=== PATIENT | female | born 1970 ===

== ENCOUNTER 2016-05-29 16:34 | Observation (INO) | payer MEDICAID ==
[2016-05-29 16:34] VITALS: BMI 29.7
[2016-05-29 17:32] VITALS: RESP 18; O2SAT 99
[2016-05-29] MEDS ORDERED: Sodium Chloride 0.9% 1,000 ML IV STA (18:53)
[2016-05-29] MEDS ORDERED: Iohexol 240 (50 ml) PO ONE (18:55)
[2016-05-29 19:11] LABS: BASO % 0.4 % (0.0-2.0); EOS # 0.3 K/uL (0.0-0.7); EOS % 2.9 % (0.0-4.0); HEMATOCRIT 39.7 % (34.0-47.0); LYMPH # 3.1 K/uL (1.0-4.3); MEAN CELL VOLUME 89.4 fl (81.0-99.0); MEAN CORPUSCULAR HEMOGLOBIN 30.3 pg (27.0-31.0); MEAN CORPUSCULAR HGB CONC 33.9 g/dL (33.0-37.0); MEAN PLATELET VOLUME 11.4 fl (7.2-11.7); MONO # 0.6 K/uL (0.0-0.8); MONO % 6.1 % (0.0-10.0); NEUT # 5.8 K/uL (1.8-7.0); NEUT % 58.6 % (50.0-75.0); RED CELL DISTRIBUTION WIDTH 12.5 % (11.5-14.5); WHITE BLOOD COUNT 9.8 K/uL (4.8-10.8)
[2016-05-29 19:20] LABS: ALB/GLOB RATIO 1.1 (1.0-2.1); ALKALINE PHOSPHATASE 114 U/L (38-126); ALT/SGPT 43 U/L (9-52); AST/SGOT 32 U/L (14-36); BILIRUBIN,TOTAL 0.7 mg/dl (0.2-1.3); BLOOD UREA NITROGEN 11 mg/dl (7-17); CALCIUM 9.6 mg/dL (8.4-10.2); CARBON DIOXIDE 26 mmol/L (22-30); CHLORIDE 103 mmol/L (98-107); GFR AFRICAN-AMERICAN > 60; GLUCOSE,RANDOM 103 mg/dL (65-105); POTASSIUM 3.7 MMOL/L (3.6-5.0); SODIUM 144 mmol/l (132-148)
[2016-05-29] MEDS ORDERED: Iohexol 240 (50 ml) ONE (19:22)
--- NOTE | 2016-05-29 19:31 | ED PDOC ---
HPI: General Adult Time Seen by Provider: 05/29/16 18:12 Chief Complaint (Nursing): Abdominal Pain Chief Complaint (Provider): Abdominal pain History Per: Patient Additional Complaint(s): Pt. states for the past 2 days she's had LLQ abdominal pain associated with nausea but no vomiting. Reports a hx of diverticulitis but no colectomy. States that pain became worse today. Also states that she noticed lump on the L side of her vagina which she no longer feels. Denies dysuria, hematuria, diarrhea, fever. Past Medical History Reviewed: Historical Data, Nursing Documentation, Vital Signs Vital Signs: Last Vital Signs Temp 98.3 F 05/29/16 22:55 Pulse 86 05/29/16 22:55 Resp 18 05/29/16 22:55 BP 138/76 05/29/16 22:55 Pulse Ox 99 05/29/16 22:55 - Medical History PMH: Anxiety, Asthma, Depression, Diverticulitis, Hiatal Hernia, HTN Denies: Chronic Kidney Disease - Surgical History Surgical History: Cholecystectomy - Family History Family History: States: No Known Family Hx - Immunization History Hx Tetanus Toxoid Vaccination: No Hx Influenza Vaccination: Yes Hx Pneumococcal Vaccination: No - Home Medications Home Medications: Ambulatory Orders Medication Instructions Recorded Pantoprazole Sodium [Protonix] 40 mg PO DAILY #20 ect 12/05/12 Albuterol Sulfate [Albuterol 1 vial IH TID PRN 12/04/13 Sulfate 2.5mg/3 ml 0.083%] DULoxetine [Cymbalta] 20 mg PO DAILY 12/04/13 Fluticasone Nasal [Flonase] 1 spray MYRTLE BID PRN 12/04/13 Hyoscyamine Sulfate [Hyoscyamine 1 tab SL AC 12/04/13 Sulfate] Loratadine [Claritin] 10 mg PO DAILY PRN 12/04/13 Nabumetone [Nabumetone] 500 mg PO BID PRN 12/04/13 Tizanidine HCl [Tizanidine] 4 mg PO Q8H PRN 12/04/13 Vitamin B Complex & Vitamin C 1 tab PO DAILY 12/04/13 [Strovite] Ranitidine HCl [Zantac 150] 150 mg PO DAILY #15 tab 07/04/14 Sucralfate [Carafate] 10 ml PO QID #400 ml 07/04/14 Inulin [Metamucil Clear and 1 pow PO DAILY #30 unit 10/28/14 Natural] Phosphate Enema [Fleet Enema 135 135 ml RC QOTHERDAY #3 nma 10/28/14 Ml] Esomeprazole Magnesium [Nexium] 20 mg PO DAILY #20 ecc 05/07/15 Fluticasone Propionate [Flonase] 1 spr NS BID #1 spr 05/07/15 Metoclopramide [Reglan] 10 mg PO TID #30 tab 05/14/15 Sucralfate [Carafate] 1 gm PO QID #60 dose 05/14/15 - Allergies Allergies/Adverse Reactions: Allergies Allergy/AdvReac Type Severity Reaction Status Date / Time levofloxacin [From Levaquin] Allergy URTICARIA Verified 05/07/15 16:50 lidocaine Allergy URTICARIA Verified 05/07/15 17:06 ALMOND Allergy ITCHING Uncoded 05/07/15 16:25 Review of Systems ROS Statement: Except As Marked, All Systems Reviewed And Found Negative Gastrointestinal: Positive for: Nausea, Abdominal Pain Physical Exam - Reviewed Nursing Documentation Reviewed: Yes Vital Signs Reviewed: Yes - Physical Exam Appears: Positive for: Well, Non-toxic, No Acute Distress Head Exam: Positive for: ATRAUMATIC, NORMAL INSPECTION, NORMOCEPHALIC Skin: Positive for: Normal Color, Warm. Negative for: Rash Eye Exam: Positive for: EOMI, Normal appearance, PERRL ENT: Positive for: Normal ENT Inspection Neck: Positive for: Normal, Painless ROM Cardiovascular/Chest: Positive for: Regular Rate, Rhythm Respiratory: Positive for: CNT, Normal Breath Sounds Gastrointestinal/Abdominal: Positive for: Normal Exam, Bowel Sounds, Soft, Tenderness (moderate LLQ abdominal tenderness) Pelvic Exam: Positive for: External Exam Normal, Speculum Exam Normal, Bimanual Exam Normal, No Cerv. 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 ). Negative for: Blood, Cervicitis, Discharge, Lesions, Mass Back: Positive for: Normal Inspection. Negative for: L CVA Tenderness, R CVA Tenderness Extremity: Positive for: Normal ROM Neurologic/Psych: Positive for: Alert, Oriented - Laboratory Results Result Diagrams: 05/29/16 19:00 05/29/16 19:00 - ECG O2 Sat by Pulse Oximetry: 99 - Progress ED Course And Treament: Labs ordered. CT abd/pelvis ordered. Morphine 4mg IV, zofran 4mg IV given. Disposition - Clinical Impression Clinical Impression: Fatty liver - Patient ED Disposition Is Patient to be Admitted: Transfer of Care (Signed out to Peg COPE pending CT results.) - Disposition Disposition Time: 20:00 Condition: GOOD
[2016-05-29 19:39] LABS: URINE BILIRUBIN NEGATIVE (NEGATIVE); URINE BLOOD NEGATIVE (NEGATIVE); URINE COLOR YELLOW (YELLOW); URINE GLUCOSE (UA) NEG (Normal); URINE KETONE NEGATIVE (NEGATIVE); URINE LEUKOCYTE ESTERASE NEG Leu/uL (Negative); URINE PROTEIN NEGATIVE (NEGATIVE); URINE UROBILINOGEN 0.2-1.0 mg/dL (0.2-1.0); WBC URINE 1 /hpf (0-5)
--- NOTE | 2016-05-29 20:44 | CT ---
EXAM: CT Abdomen and Pelvis Without Intravenous Contrast CLINICAL HISTORY: 46 years old, female; Pain; Abdominal pain; Localized; Left lower quadrant (llq); Prior surgery; Surgery date: 6+ months; Surgery type: Gb removed, tubal ligation; Additional info: Llq abdominal pain TECHNIQUE: Axial computed tomography images of the abdomen and pelvis without intravenous contrast. This CT exam was performed using one or more of the following dose reduction techniques: automated exposure control, adjustment of the mA and/or kV according to patient size, and/or use of iterative reconstruction technique. Coronal and sagittal reformatted images were created and reviewed. EXAM DATE/TIME: 05/29/2016 7:40 PM COMPARISON: CT - ABD PELVIS PO CONTRAST ONLY 10/28/2014 10:02:00 PM FINDINGS: Lower thorax: Heart size is normal. There is a hiatal hernia. Lung bases are clear ABDOMEN: Liver: There is fatty infiltration of the liver. Liver size is at the upper limits of normal. Gallbladder and bile ducts: Gallbladder is surgically absent. Common bile duct is mildly prominent. Pancreas: unremarkable Spleen: unremarkable Adrenals: unremarkable Kidneys and ureters: Right kidney is unremarkable. 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 There are no renal or ureteral stones. Stomach and bowel: Stomach is partially distended. Rotation is normal. There is no obstruction. Appendix and terminal ileum are unremarkable. Colon is incompletely distended which limits evaluation. There is minimal diverticulosis Appendix: See stomach and bowel PELVIS: Bladder: Bladder is almost completely empty. Reproductive: Uterus and adnexal structures are unremarkable. ABDOMEN and PELVIS: Intraperitoneal space: There is trace free fluid. There are is no free air. Bones/joints: There are no acute osseous abnormalities there is minimal degenerative change. Soft tissues: There is a small fat containing umbilical hernia. Vasculature: Vascular structures are unremarkable. Lymph nodes: There is shotty para-aortic adenopathy. IMPRESSION: Fatty liver, no acute solid visceral abnormality; prior cholecystectomy, no ductal dilatation; no CT findings of appendicitis or diverticulitis Additional findings as described above.
--- NOTE | 2016-05-29 22:10 | ED PDOC ---
- Laboratory Results Result Diagrams: 05/29/16 19:00 05/29/16 19:00 - ECG O2 Sat by Pulse Oximetry: 99 Medical Decision Making Medical Decision Making: Endorsed pending CT. (+) fatty liver. Discussed f.u with GI. Disposition - Clinical Impression Clinical Impression: Steatosis of liver - POA Present On Arrival: None - Disposition Disposition: Routine/Home Disposition Time: 22:09 Condition: GOOD
[2016-05-29 22:56] VITALS: BP 138/76; PULSE 86; TEMP 98.3
== END 2016-05-29 22:56 | disposition home or self-care (01) ==
LOC: H.ER 16:34 → H.EROBSV 18:52
PROVIDERS: ADMIT Emergency Medicine; ATTEND Emergency Medicine
DX: K76.0 Fatty (change of) liver, not elsewhere classified (principal); I10 Essential (primary) hypertension; J45.909 Unspecified asthma, uncomplicated

== ENCOUNTER 2016-12-04 18:31 | Emergency (ER) | payer MEDICAID ==
[2016-12-04 18:31] VITALS: BMI 29.7
[2016-12-04 19:06] VITALS: O2SAT 97
--- NOTE | 2016-12-04 19:20 | ED PDOC ---
HPI: General Adult Time Seen by Provider: 12/04/16 19:19 Chief Complaint (Nursing): Flu-like Symptoms Chief Complaint (Provider): abd pain, body aches History Per: Patient Additional Complaint(s): 46-year-old female with history of diverticulitis presents to emergency department complaining of left lower quadrant abdominal pain, nausea and body aches 1 week. Patient states pain progressed today prompting ED visit. Patient has decreased appetite and diarrhea but denies any vomiting. She denies any dysuria or history of kidney stones. She relates abdominal pain as a 9 out of 10. Past Medical History Reviewed: Historical Data, Nursing Documentation, Vital Signs Vital Signs: Last Vital Signs Temp 102.0 F H 12/04/16 19:05 Pulse 121 H 12/04/16 19:05 Resp 16 12/04/16 19:05 BP 161/95 H 12/04/16 19:05 Pulse Ox 97 12/04/16 19:20 - Medical History PMH: Anxiety, Asthma, Depression, Diverticulitis, Hiatal Hernia, HTN - Surgical History Surgical History: Cholecystectomy - Family History Family History: States: No Known Family Hx - Living Arrangements Living Arrangements: With Family - Social History Current smoker - smoking cessation education provided: No Alcohol: None Drugs: Denies - Home Medications Home Medications: Ambulatory Orders Medication Instructions Recorded Cholecalciferol [Vitamin D 1000 IU] 1,000 unit PO DAILY 06/02/16 Cyclobenzaprine [Flexeril] 10 mg PO BID PRN 06/02/16 Famotidine [Pepcid] 20 mg PO BID PRN 06/02/16 Metoclopramide [Reglan] 10 mg PO TID PRN 06/02/16 Multivitamin [Multi-Vitamin Daily] 1 tab PO DAILY 06/02/16 Naproxen [Naprosyn] 500 mg PO BID PRN 06/02/16 Omeprazole [Omeprazole] 40 mg PO DAILY 06/02/16 Thiamine [Vitamin B1 Tab] 100 mg PO DAILY 06/02/16 - Allergies Allergies/Adverse Reactions: Allergies Allergy/AdvReac Type Severity Reaction Status Date / Time Iodinated Contrast- Oral and Allergy RASH Verified 06/02/16 13:30 IV Dye [Iodinated Contrast Media - Oral and] levofloxacin [From Levaquin] Allergy URTICARIA Verified 06/02/16 13:30 lidocaine Allergy URTICARIA Verified 06/02/16 13:30 ALMOND Allergy ITCHING Uncoded 05/07/15 16:25 Review of Systems ROS Statement: Except As Marked, All Systems Reviewed And Found Negative Constitutional: Positive for: Fever, Chills, Weakness Cardiovascular: Negative for: Chest Pain Respiratory: Negative for: Cough Gastrointestinal: Positive for: Nausea, Abdominal Pain, Diarrhea. Negative for : Vomiting, Constipation, Melena, Hematochezia, Hematemesis, Rectal Pain Genitourinary Female: Negative for: Dysuria, Frequency, Hematuria, Vaginal Discharge, Vaginal Bleeding Neurological: Negative for: Headache, Dizziness Physical Exam - Reviewed Nursing Documentation Reviewed: Yes Vital Signs Reviewed: Yes - Physical Exam Appears: Positive for: Well, Non-toxic, No Acute Distress Skin: Negative for: Rash Eye Exam: Positive for: Normal appearance Cardiovascular/Chest: Positive for: Regular Rate, Rhythm Respiratory: Positive for: Normal Breath Sounds Gastrointestinal/Abdominal: Positive for: Tenderness (llq). Negative for: Distended, Guarding, Rebound Back: Positive for: L CVA Tenderness. Negative for: R CVA Tenderness, Vertebral Tenderness Extremity: Positive for: Normal ROM. Negative for: Pedal Edema Neurologic/Psych: Positive for: Alert, Oriented - ECG O2 Sat by Pulse Oximetry: 97 Pulse Ox Interpretation: Normal Medical Decision Making Medical Decision Makin46 year old with fever, body aches and abd pain Plan: CBC CMP Lipase Lactate Flu swab Blood cultures UA Urine culture IVF PO tylenol and motrin CT abd and pelvis with barium (patient has allergy to IV and oral contrast) IV zofran CXR Disposition - Clinical Impression Clinical Impression: Abdominal pain - Patient ED Disposition Is Patient to be Admitted: Transfer of Care - Disposition Disposition: Transfer of Care Disposition Time: 20:07 Condition: FAIR Forms: [employer] (Afghan) Patient Signed Over To: Coni Bellamy Handoff Comments: Case was transferred to NANDA Bellamy pending diagnostic test results and final disposition
[2016-12-04] MEDS ORDERED: Barium Sulfate Susp 2.1% w/v, 2.0% w/w 450 mL Bottle PO ONE ×3 (19:35→20:38)
[2016-12-04] MEDS ORDERED: Sodium Chloride 0.9% 1,000 ML IV STA (19:35)
[2016-12-04 20:31] LABS: BASO % 0.1 % (0.0-2.0); EOS % 0.1 % (0.0-4.0); HEMATOCRIT 38.5 % (34.0-47.0); LYMPH # 0.5 K/uL (1.0-4.3); MEAN CELL VOLUME 88.4 fl (81.0-99.0); MEAN CORPUSCULAR HEMOGLOBIN 29.6 pg (27.0-31.0); MEAN CORPUSCULAR HGB CONC 33.5 g/dL (33.0-37.0); MEAN PLATELET VOLUME 10.6 fl (7.2-11.7); MONO # 0.1 K/uL (0.0-0.8); MONO % 1.8 % (0.0-10.0); NEUT # 6.1 K/uL (1.8-7.0); PLATELET COUNT 144 K/uL (130-400); RED CELL DISTRIBUTION WIDTH 12.8 % (11.5-14.5); WHITE BLOOD COUNT 6.7 K/uL (4.8-10.8)
[2016-12-04 20:43] LABS: RBC URINE 1 /hpf (0-3); URINE BILIRUBIN NEGATIVE (NEGATIVE); URINE BLOOD NEGATIVE (NEGATIVE); URINE COLOR YELLOW (YELLOW); URINE GLUCOSE (UA) NEG (Normal); URINE KETONE NEGATIVE (NEGATIVE); URINE LEUKOCYTE ESTERASE NEG Leu/uL (Negative); URINE PROTEIN NEGATIVE (NEGATIVE); URINE UROBILINOGEN 0.2-1.0 mg/dL (0.2-1.0); WBC URINE 1 /hpf (0-5)
[2016-12-04 21:02] LABS: ALB/GLOB RATIO 1.2 (1.0-2.1); ALKALINE PHOSPHATASE 115 U/L (38-126); ALT/SGPT 43 U/L (9-52); AST/SGOT 31 U/L (14-36); BILIRUBIN,TOTAL 0.7 mg/dl (0.2-1.3); BLOOD UREA NITROGEN 9 mg/dl (7-17); CALCIUM 9.1 mg/dL (8.4-10.2); CARBON DIOXIDE 21 mmol/L (22-30); CHLORIDE 105 mmol/L (98-107); GFR AFRICAN-AMERICAN > 60; GLUCOSE,RANDOM 105 mg/dL (65-105); LIPASE 67 U/L (23-300); POTASSIUM 3.7 MMOL/L (3.6-5.0); SODIUM 137 mmol/l (132-148); TOTAL PROTEIN 7.6 G/DL (6.3-8.2)
[2016-12-04 21:16] LABS: METAMYELOCYTE 1 % (0-0); NEUTROPHIL 92 % (42-75); TOTAL CELLS COUNTED 100
--- NOTE | 2016-12-04 23:15 | CT ---
EXAM: CT Abdomen and Pelvis With Intravenous Contrast CLINICAL HISTORY: 46 years old, female; Pain; Abdominal pain; Localized; Left; Prior surgery; Surgery date: 1-6 months; Surgery type: Rt ovary removed within 6 months. Tubal ligation. Gb removed; Patient HX: HX: Of diverticulitis; Additional info: Fever, left side abd pain TECHNIQUE: Axial computed tomography images of the abdomen and pelvis with intravenous contrast. All CT scans at this facility use one or more dose reduction techniques, viz.: automated exposure control; ma/kV adjustment per patient size (including targeted exams where dose is matched to indication; i.e. head); or iterative reconstruction technique. Coronal and sagittal reformatted images were created and reviewed. COMPARISON: CT - ABD PELVIS PO CONTRAST ONLY 2016-06-02 17:46 FINDINGS: Lower thorax: The visualized portions of the lung bases are normal. ABDOMEN: Liver: There is a diffuse decrease in hepatic parenchymal density, consistent with fatty infiltration. There are no focal liver lesions present. Gallbladder and bile ducts: There has been a cholecystectomy. No ductal dilation. Pancreas: The pancreas is normal. No ductal dilation. Spleen: The spleen is normal. Adrenals: The adrenal glands are normal. Kidneys and ureters: The kidneys are normal. No hydronephrosis. Stomach and bowel: The stomach is normal. Colonic constipation is present. There is no evidence of intestinal obstruction. No mucosal thickening. Appendix: A normal appendix is identified. PELVIS: Bladder: The bladder is normal. Reproductive: The uterus is normal. ABDOMEN and PELVIS: Intraperitoneal space: There is no evidence of free intraperitoneal fluid. There is no free intraperitoneal air. Bones/joints: There are mild degenerative changes present. No acute fracture. No dislocation. Soft tissues: Unremarkable. Vasculature: The aorta is normal. No abdominal aortic aneurysm. Lymph nodes: There is no evidence of lymphadenopathy. IMPRESSION: No acute findings.
--- NOTE | 2016-12-04 23:28 | ED PDOC ---
- Laboratory Results Result Diagrams: 12/04/16 20:19 12/04/16 20:47 - ECG O2 Sat by Pulse Oximetry: 97 Pulse Ox Interpretation: Normal - Radiology X-Ray: Viewed By Me X-Ray Interpretation: No Acute Disease - Progress ED Course And Treament: Case endorsed to card writer hand from Michelle COPE pending labs, CT EXAM: CT Abdomen and Pelvis With Intravenous Contrast CLINICAL HISTORY: 46 years old, female; Pain; Abdominal pain; Localized; Left; Prior surgery; Surgery date: 1-6 months; Surgery type: Rt ovary removed within 6 months. Tubal ligation. Gb removed; Patient HX: HX: Of diverticulitis; Additional info: Fever, left side abd pain TECHNIQUE: Axial computed tomography images of the abdomen and pelvis with intravenous contrast. All CT scans at this facility use one or more dose reduction techniques, viz.: automated exposure control; ma/kV adjustment per patient size (including targeted exams where dose is matched to indication; i.e. head); or iterative reconstruction technique. Coronal and sagittal reformatted images were created and reviewed. COMPARISON: CT - ABD PELVIS PO CONTRAST ONLY 2016-06-02 17:46 FINDINGS: Lower thorax: The visualized portions of the lung bases are normal. ABDOMEN: Liver: There is a diffuse decrease in hepatic parenchymal density, consistent with fatty infiltration. There are no focal liver lesions present. Gallbladder and bile ducts: There has been a cholecystectomy. No ductal dilation. Pancreas: The pancreas is normal. No ductal dilation. Spleen: The spleen is normal. Adrenals: The adrenal glands are normal. Kidneys and ureters: The kidneys are normal. No hydronephrosis. Stomach and bowel: The stomach is normal. Colonic constipation is present. There is no evidence of intestinal obstruction. No mucosal thickening. Appendix: A normal appendix is identified. PELVIS: Bladder: The bladder is normal. Reproductive: The uterus is normal. ABDOMEN and PELVIS: Intraperitoneal space: There is no evidence of free intraperitoneal fluid. There is no free intraperitoneal air. Bones/joints: There are mild degenerative changes present. No acute fracture. No dislocation. Soft tissues: Unremarkable. Vasculature: The aorta is normal. No abdominal aortic aneurysm. Lymph nodes: There is no evidence of lymphadenopathy. IMPRESSION: No acute findings. On re-eval, patient resting comfortably; vitals improved. Patient educated on findings, discharged with rx miralax. Advised rest, fluids, Tylenol/Ibuprofen PRN fever. Follow up PMD 2-3 days. Return to ED for worsening/concerning symptoms. Disposition - Clinical Impression Clinical Impression: Abdominal pain, Viral syndrome, Constipation - POA Present On Arrival: None - Disposition Disposition: Routine/Home Disposition Time: 23:57 Condition: IMPROVED Prescriptions: Polyethylene Glycol 3350 [Miralax] 17 gm PO DAILY PRN #5 powd.pack PRN Reason: Constipation Instructions: Viral Syndrome (ED), Constipation (ED) Forms: [employer] (Surinamese)
[2016-12-04 23:35] VITALS: BP 116/66; PULSE 93; RESP 15; TEMP 98.4
--- NOTE | 2016-12-05 09:56 | RAD ---
HISTORY: Fever COMPARISON: 09/15/2013. FINDINGS: LUNGS: The lungs are well inflated and clear. PLEURA: No significant pleural effusion identified, no pneumothorax apparent. CARDIOVASCULAR: Normal. OSSEOUS STRUCTURES: No significant abnormalities. VISUALIZED UPPER ABDOMEN: Normal. OTHER FINDINGS: None. IMPRESSION: No active pulmonary disease.
== END 2016-12-05 00:12 | disposition home or self-care (01) ==
LOC: H.ER 18:31
DX: R10.32 Left lower quadrant pain (principal); B34.9 Viral infection, unspecified; K59.00 Constipation, unspecified; K57.90 Diverticulosis of intestine, part unspecified, without perforation or abscess without bleeding
CPT/HCPCS: 71010; 74176; 80053; 81003; 81025; 83605; 83690; 85025; 87040; 87086; 87804; 99283; J7040

== ENCOUNTER 2017-05-21 16:13 | Emergency (ER) | payer MEDICAID ==
[2017-05-21 16:13] VITALS: BMI 29.7
[2017-05-21 17:47] VITALS: RESP 18
[2017-05-21] MEDS ORDERED: Barium Sulfate Susp 2.1% w/v, 2.0% w/w 450 mL Bottle PO ONE ×3 (20:05→21:07)
[2017-05-21] MEDS ORDERED: Sodium Chloride 0.9% 1,000 ML IV SCH (20:15)
--- NOTE | 2017-05-21 20:19 | ED PDOC ---
HPI: Abdomen <Yariel Dotson - Last Filed: 05/22/17 02:24> Chief Complaint (Provider): Abdominal Pain History Per: Patient History/Exam Limitations: no limitations Current Symptoms Are (Timing): Still Present <Beni Jerez - Last Filed: 05/22/17 11:55> Time Seen by Provider: 05/21/17 20:00 Chief Complaint (Nursing): Abdominal Pain Additional Complaint(s): 47 y/o female with a pmhx of diverticulosis and cholecystectomy, who presents to the ED complaining of abdominal pain and back pain. Patient states her abdominal pain is epigastric and radiates to her back. Also states she has had frequent acid reflux which has been unimproved by Pepcid, Zantac, and Omeprazole. Reports seeing her GI, Dr. Kg Cintron, who prescribed her Protonix for her pain, but states her prescription is not yet ready. Also complaining of constipation, spitting up mucus, and mucus in her BMs. PMD: Lester Santoyo (Beni Jerez) Past Medical History <Yariel Dotson - Last Filed: 05/22/17 02:24> Reviewed: Historical Data, Nursing Documentation, Vital Signs - Medical History PMH: Anxiety, Asthma, Depression, Diverticulitis, Hiatal Hernia, HTN Denies: Chronic Kidney Disease - Surgical History Surgical History: Cholecystectomy - Family History Family History: States: Unknown Family Hx - Immunization History Hx Tetanus Toxoid Vaccination: No Hx Influenza Vaccination: Yes Hx Pneumococcal Vaccination: No <Beni Jerez - Last Filed: 05/22/17 11:55> Vital Signs: Last Vital Signs Temp 97.3 F L 05/22/17 02:10 Pulse 71 05/22/17 02:10 Resp 18 05/22/17 02:10 BP 120/82 05/22/17 02:10 Pulse Ox 97 05/22/17 02:10 - Home Medications Home Medications: Ambulatory Orders Medication Instructions Recorded Cholecalciferol [Vitamin D 1000 IU] 1,000 unit PO DAILY 06/02/16 Cyclobenzaprine [Flexeril] 10 mg PO BID PRN 06/02/16 Famotidine [Pepcid] 20 mg PO BID PRN 06/02/16 Metoclopramide [Reglan] 10 mg PO TID PRN 06/02/16 Multivitamin [Multi-Vitamin Daily] 1 tab PO DAILY 06/02/16 Naproxen [Naprosyn] 500 mg PO BID PRN 06/02/16 Omeprazole [Omeprazole] 40 mg PO DAILY 06/02/16 Thiamine [Vitamin B1 Tab] 100 mg PO DAILY 06/02/16 Polyethylene Glycol 3350 [Miralax] 17 gm PO DAILY PRN #5 powd.pack 12/04/16 - Allergies Allergies/Adverse Reactions: Allergies Allergy/AdvReac Type Severity Reaction Status Date / Time Iodinated Contrast- Oral and Allergy RASH Verified 06/02/16 13:30 IV Dye [Iodinated Contrast Media - Oral and] levofloxacin [From Levaquin] Allergy URTICARIA Verified 06/02/16 13:30 lidocaine Allergy URTICARIA Verified 06/02/16 13:30 ALMOND Allergy ITCHING Uncoded 05/07/15 16:25 Review of Systems ROS Statement: Except As Marked, All Systems Reviewed And Found Negative Gastrointestinal: Positive for: Abdominal Pain, Constipation Musculoskeletal: Positive for: Back Pain <Beni Jerez - Last Filed: 05/22/17 11:55> Physical Exam - Reviewed Nursing Documentation Reviewed: Yes Vital Signs Reviewed: Yes - Physical Exam Appears: Positive for: Non-toxic, No Acute Distress Head Exam: Positive for: ATRAUMATIC Skin: Positive for: Normal Color, Warm Eye Exam: Positive for: Normal appearance Cardiovascular/Chest: Positive for: Regular Rate, Rhythm, Chest Non Tender. Negative for: Murmur Respiratory: Positive for: Normal Breath Sounds. Negative for: Rales, Wheezing , Respiratory Distress, Plerual Rub Gastrointestinal/Abdominal: Positive for: Tenderness (epigastric tenderness into lower sternum), Other (Garcia's sign negative, McBurney's sign negative, Rosving's sign negative). Negative for: Guarding, Rebound <Beni Jerez - Last Filed: 05/22/17 11:55> - Laboratory Results Result Diagrams: 05/21/17 20:37 05/21/17 20:37 <Yariel Dotson - Last Filed: 05/22/17 02:24> - Laboratory Results Result Diagrams: 05/21/17 20:37 05/21/17 20:37 - ECG O2 Sat by Pulse Oximetry: 98 (RA) Pulse Ox Interpretation: Normal <Beni Jerez - Last Filed: 05/22/17 11:55> Medical Decision Making <MauriYariel Krzysztof - Last Filed: 05/22/17 02:24> <Beni Jerez - Last Filed: 05/22/17 11:55> Medical Decision Makin:05 Initial Impression: Gastric ulcer Plan: -CT Abdomen and Pelvis -Alcohol serum -CMP -Lipase -Troponin I -CBC -Fluid bolus -Barium Sulfate 300ml PO -Urinalysis -Reevaluation Scribe Attestation: Documented by John Alegria, acting as a scribe for Beni Jerez PA-C. Provider Scribe Attestation: All medical record entries made by the Scribe were at my direction and personally dictated by me. I have reviewed the chart and agree that the record accurately reflects my personal performance of the history, physical exam, medical decision making, and the department course for this patient. I have also personally directed, reviewed, and agree with the discharge instructions and disposition. (Beni Jerez) Disposition <Yariel Dotson - Last Filed: 05/22/17 02:24> <Beni Jerez - Last Filed: 05/22/17 11:55> - Clinical Impression Clinical Impression: Gastritis - Disposition Condition: STABLE Instructions: Gastritis Forms: [employer] (Korean)
[2017-05-21 20:49] LABS: BASO # 0.1 K/uL (0.0-0.2); BASO % 0.7 % (0.0-2.0); EOS # 0.2 K/uL (0.0-0.7); EOS % 1.9 % (0.0-4.0); HEMOGLOBIN 12.6 g/dL (12.0-16.0); LYMPH # 3.2 K/uL (1.0-4.3); LYMPH % 35.6 % (20.0-40.0); MEAN CELL VOLUME 90.8 fl (81.0-99.0); MEAN CORPUSCULAR HEMOGLOBIN 30.2 pg (27.0-31.0); MEAN CORPUSCULAR HGB CONC 33.2 g/dL (33.0-37.0); MEAN PLATELET VOLUME 10.9 fl (7.2-11.7); MONO # 0.6 K/uL (0.0-0.8); MONO % 6.4 % (0.0-10.0); NEUT % 55.4 % (50.0-75.0); NRBC % 0.1 % (0.0-0.0); RBC 4.19 Mil/uL (3.80-5.20); RED CELL DISTRIBUTION WIDTH 12.5 % (11.5-14.5)
[2017-05-21 20:55] LABS: SQUAMOUS EPITHIAL 3 /hpf (0-5); URINE BILIRUBIN NEGATIVE (NEGATIVE); URINE BLOOD NEGATIVE (NEGATIVE); URINE CLARITY SLIGHTY-CLOUDY (Clear); URINE COLOR YELLOW (YELLOW); URINE GLUCOSE (UA) NEG (Normal); URINE LEUKOCYTE ESTERASE NEG Leu/uL (Negative); URINE PROTEIN NEGATIVE (NEGATIVE); URINE UROBILINOGEN 0.2-1.0 mg/dL (0.2-1.0)
[2017-05-21 21:23] LABS: ALB/GLOB RATIO 1.2 (1.0-2.1); ALBUMIN 4.2 g/dL (3.5-5.0); ALT/SGPT 41 U/L (9-52); AST/SGOT 23 U/L (14-36); BLOOD UREA NITROGEN 15 mg/dl (7-17); CALCIUM 9.5 mg/dL (8.4-10.2); GFR AFRICAN-AMERICAN > 60; GFR NON-AFRICAN AMERICAN > 60; LIPASE 109 U/L (23-300)
--- NOTE | 2017-05-22 00:56 | CT ---
EXAM: CT Abdomen and Pelvis With Intravenous Contrast CLINICAL HISTORY: 47 years old, female; Pain; Abdominal pain; Epigastric; Prior surgery; Surgery date: 6+ months; Surgery type: Cholecystectomy; Additional info: R/O [facility] TECHNIQUE: Axial computed tomography images of the abdomen and pelvis with intravenous contrast. All CT scans at this facility use one or more dose reduction techniques, viz.: automated exposure control; ma/kV adjustment per patient size (including targeted exams where dose is matched to indication; i.e. head); or iterative reconstruction technique. Coronal and sagittal reformatted images were created and reviewed. CONTRAST: 10 mL of oral administered intravenously. COMPARISON: US - ABDOMEN COMPLETE 2015-05-14 12:53 FINDINGS: Lung bases: Unremarkable. No mass. No consolidation. ABDOMEN: Liver: There is a diffuse decrease in hepatic parenchymal density, consistent with fatty infiltration. Gallbladder and bile ducts: There has been a cholecystectomy. No ductal dilation. Pancreas: Unremarkable. No mass. No ductal dilation. Spleen: Unremarkable. No splenomegaly. Adrenals: Unremarkable. No mass. Kidneys and ureters: Unremarkable. No solid mass. No hydronephrosis. Stomach and bowel: Unremarkable. No obstruction. No mucosal thickening. Appendix: No findings to suggest acute appendicitis. Normal appendix. PELVIS: Bladder: Unremarkable. No mass. Reproductive: Unremarkable as visualized. ABDOMEN and PELVIS: Intraperitoneal space: Unremarkable. No free air. No significant fluid collection. Bones/joints: No acute fracture. No dislocation. Soft tissues: Unremarkable. Vasculature: Unremarkable. No abdominal aortic aneurysm. Lymph nodes: Unremarkable. No enlarged lymph nodes. There is a small fat-containing umbilical hernia. IMPRESSION: No acute intra-abdominal or pelvic abnormality. Fatty liver. Cholecystectomy. Small fat-containing umbilical hernia.
[2017-05-22] MEDS ORDERED: Simethicone 80 mg Chewtab PO STA (01:56)
[2017-05-22 02:21] VITALS: BP 120/82; PULSE 71; TEMP 97.3
[2017-05-22 11:56] VITALS: O2SAT 98
== END 2017-05-22 02:10 | disposition home or self-care (01) ==
LOC: H.ER 16:13
DX: K29.70 Gastritis, unspecified, without bleeding (principal); K42.9 Umbilical hernia without obstruction or gangrene; I10 Essential (primary) hypertension
CPT/HCPCS: 74176; 80053; 80320; 81003; 81025; 83690; 84484; 85025; 96360; 96374; 99282; C9113; J7040

== ENCOUNTER 2018-05-07 12:56 | Emergency (ER) | payer MEDICAID ==
[2018-05-07 12:57] VITALS: BMI 29.7
[2018-05-07 13:09] VITALS: BP 129/84; PULSE 100; RESP 16; TEMP 98; O2SAT 97
[2018-05-07] MEDS ORDERED: Dexamethasone 10 MG in Sodium Chloride 0.9% 50 ML IV STA (13:42)
[2018-05-07] MEDS ORDERED: Methocarbamol 750 MG TAB PO STA (13:42)
[2018-05-07 14:10] LABS: BASO % 0.4 % (0.0-2.0); EOS # 0.1 K/uL (0.0-0.7); EOS % 1.6 % (0.0-4.0); HEMOGLOBIN 12.5 g/dL (12.0-16.0); LYMPH # 3.1 K/uL (1.0-4.3); LYMPH % 38.2 % (20.0-40.0); MEAN CELL VOLUME 89.4 fl (81.0-99.0); MEAN CORPUSCULAR HEMOGLOBIN 30.1 pg (27.0-31.0); MEAN CORPUSCULAR HGB CONC 33.7 g/dL (33.0-37.0); MONO # 0.7 K/uL (0.0-0.8); NEUT # 4.3 K/uL (1.8-7.0); NEUT % 51.8 % (50.0-75.0); NRBC % 0.1 % (0.0-0.0); RBC 4.16 Mil/uL (3.80-5.20); RED CELL DISTRIBUTION WIDTH 12.4 % (11.5-14.5); WHITE BLOOD COUNT 8.2 K/uL (4.8-10.8)
[2018-05-07 14:14] LABS: SQUAMOUS EPITHIAL 4 /hpf (0-5); URINE BILIRUBIN NEGATIVE (NEGATIVE); URINE BLOOD NEGATIVE (NEGATIVE); URINE CLARITY SLIGHTY-CLOUDY (Clear); URINE COLOR YELLOW (YELLOW); URINE GLUCOSE (UA) NEG (NEGATIVE); URINE LEUKOCYTE ESTERASE NEG Leu/uL (Negative); URINE PROTEIN NEGATIVE (NEGATIVE); URINE UROBILINOGEN 0.2-1.0 mg/dL (0.2-1.0)
[2018-05-07 14:20] LABS: ALB/GLOB RATIO 1.3 (1.0-2.1); ALBUMIN 4.2 g/dL (3.5-5.0); ALT/SGPT 39 U/L (9-52); AST/SGOT 27 U/L (14-36); BLOOD UREA NITROGEN 14 mg/dl (7-17); CALCIUM 9.4 mg/dL (8.4-10.2); GFR NON-AFRICAN AMERICAN > 60
--- NOTE | 2018-05-07 15:16 | ED PDOC ---
HPI: Abdomen Time Seen by Provider: 05/07/18 13:30 Chief Complaint (Nursing): Abdominal Pain Chief Complaint (Provider): Abdominal pain, back pain, left hip pain History Per: Patient History/Exam Limitations: no limitations Additional Complaint(s): 48yo female, with history of scoliosis, arthritis in her back, degenerative disk disease, comes to ER reporting constant left sided back, hip and abdbominal pain radiating to her left leg x 2 weeks. Prior to that pain was intermittent for 2-3 months. She reports the pain worsens when she walks or sits, and has been taking naproxen with no relief. Pt notes she thinks she may have done some heavy lifting 2 weeks ago when she is not supposed to due to her back problems. Patient has been evaluated multiple times for the same complaints by her PMD, OBGYN and a chiropractor, but she has not had a definite explanation for her symptoms. She had a US pelvis done which indicated 2 small left ovarian cysts as well as a uterine fibroid; patient has an MRI scheduled for tomorrow. She also reports a history of IBS, states she is constipated but this is unchanged from her usual. last BM was this morning, but was hard. Otherwise, denies any nasuea, vomiting, numbness, tingling, urinary symptoms, incontinence, saddles anesthesia. Denies history of IVDA or malignancies. PMD: Dr. Santoyo Past Medical History Reviewed: Historical Data, Nursing Documentation, Vital Signs Vital Signs: Last Vital Signs Temp 98.0 F 05/07/18 13:07 Pulse 100 H 05/07/18 13:07 Resp 16 05/07/18 13:07 BP 129/84 05/07/18 13:07 Pulse Ox 97 05/07/18 13:07 - Medical History PMH: Anxiety, Asthma, Depression, Diverticulitis, Hiatal Hernia, HTN Denies: Chronic Kidney Disease - Surgical History Surgical History: Cholecystectomy Other surgeries: right oopherectomy, carpal tunnel surgery - Family History Family History: States: Unknown Family Hx - Social History Current smoker - smoking cessation education provided: No Alcohol: None Drugs: Denies - Immunization History Hx Tetanus Toxoid Vaccination: No Hx Influenza Vaccination: Yes Hx Pneumococcal Vaccination: No - Home Medications Home Medications: Ambulatory Orders Medication Instructions Recorded Cholecalciferol [Vitamin D 1000 IU] 1,000 unit PO DAILY 06/02/16 Cyclobenzaprine [Flexeril] 10 mg PO BID PRN 06/02/16 Famotidine [Pepcid] 20 mg PO BID PRN 06/02/16 Metoclopramide [Reglan] 10 mg PO TID PRN 06/02/16 Multivitamin [Multi-Vitamin Daily] 1 tab PO DAILY 06/02/16 Naproxen [Naprosyn] 500 mg PO BID PRN 06/02/16 Omeprazole 40 mg PO DAILY 06/02/16 Thiamine [Vitamin B1 Tab] 100 mg PO DAILY 06/02/16 Polyethylene Glycol 3350 [Miralax] 17 gm PO DAILY PRN #5 powd.pack 12/04/16 Methocarbamol [Robaxin] 750 mg PO Q6 PRN #12 tab 05/07/18 - Allergies Allergies/Adverse Reactions: Allergies Allergy/AdvReac Type Severity Reaction Status Date / Time codeine Allergy SHORTNESS Verified 05/07/18 14:03 OF BREATH Iodinated Contrast- Oral and Allergy RASH Verified 06/02/16 13:30 IV Dye [Iodinated Contrast Media - Oral and] levofloxacin [From Levaquin] Allergy URTICARIA Verified 06/02/16 13:30 lidocaine Allergy URTICARIA Verified 06/02/16 13:30 ALMOND Allergy ITCHING Uncoded 05/07/15 16:25 Review of Systems ROS Statement: Except As Marked, All Systems Reviewed And Found Negative Gastrointestinal: Positive for: Abdominal Pain Genitourinary Female: Negative for: Dysuria, Frequency, Incontinence, Hematuria Musculoskeletal: Positive for: Back Pain, Leg Pain Neurological: Negative for: Weakness, Numbness Physical Exam - Reviewed Nursing Documentation Reviewed: Yes Vital Signs Reviewed: Yes - Physical Exam Comments: GENERAL APPEARANCE: Patient is awake, alert, oriented x 3, in mild painful distress. SKIN: Warm, dry; (-) cyanosis. EYES: (-) conjunctival pallor, (-) scleral icterus. ENMT: Mucous membranes moist. NECK: (-) tenderness, (-) stiffness, (-) lymphadenopathy. CHEST AND RESPIRATORY: (-) rales, (-) rhonchi, (-) wheezes; breath sounds equal bilaterally. HEART AND CARDIOVASCULAR: (-) irregularity; (-) murmur, (-) gallop. ABDOMEN AND GI: Tenderness to left lower quadrant; no mass, guarding, rebound, organomegaly. No CVA tenderness. BACK: Left paralumbar tenderness radiating to left buttock ; (+) straight leg raise left leg (-)midline tenderness (+)decrease ROM due to pain EXTREMITIES: (-) deformity, (-) edema, (+) distal pulses; (+) FROM of all extr emities; (+) 5/5 strength of all extremities. Mild anterior left hip tenderness. NEURO AND PSYCH: Mental status as above; (-) focal findings. - Laboratory Results Result Diagrams: 05/07/18 13:50 05/07/18 13:50 Lab Results: Total Bilirubin 0.5 mg/dl (0.2-1.3) 05/07/18 13:50 AST 27 U/L (14-36) 05/07/18 13:50 ALT 39 U/L (9-52) 05/07/18 13:50 Alkaline Phosphatase 121 U/L (38-126) 05/07/18 13:50 Total Protein 7.4 G/DL (6.3-8.2) 05/07/18 13:50 Albumin 4.2 g/dL (3.5-5.0) 05/07/18 13:50 Globulin 3.3 gm/dL (2.2-3.9) 05/07/18 13:50 Albumin/Globulin Ratio 1.3 (1.0-2.1) 05/07/18 13:50 Urine Color Yellow (YELLOW) 05/07/18 13:49 Urine Clarity Slighty-cloudy (Clear) 05/07/18 13:49 Urine pH 5.0 (5.0-8.0) 05/07/18 13:49 Ur Specific Tully 1.025 (1.003-1.030) 05/07/18 13:49 Urine Protein Negative mg/dL (NEGATIVE) 05/07/18 13:49 Urine Glucose (UA) Neg mg/dL (NEGATIVE) 05/07/18 13:49 Urine Ketones Negative mg/dL (NEGATIVE) 05/07/18 13:49 Urine Blood Negative (NEGATIVE) 05/07/18 13:49 Urine Nitrate Negative (NEGATIVE) 05/07/18 13:49 Urine Bilirubin Negative (NEGATIVE) 05/07/18 13:49 Urine Urobilinogen 0.2-1.0 mg/dL (0.2-1.0) 05/07/18 13:49 Ur Leukocyte Esterase Neg Elsie/uL (Negative) 05/07/18 13:49 Urine RBC (Auto) 2 /hpf (0-3) 05/07/18 13:49 Urine Microscopic WBC 1 /hpf (0-5) 05/07/18 13:49 Ur Squamous Epith Cells 4 /hpf (0-5) 05/07/18 13:49 - ECG O2 Sat by Pulse Oximetry: 97 (RA) Pulse Ox Interpretation: Normal Medical Decision Making Medical Decision Making: Labs and UA ordered Patient given decadron, toradol and robaxin for pain relief. pt has a ride home pt reports she has tried flexeril before but does not like the feeling it causes 15:15 re eval pt is feeling better, she has no pain when laying still, only has pain in her left hip and left lower back with movement of her hip, pt ambulating without difficulties, xr of hip recently with no acute findings, pelvic US done recently, scheduled for MRI tomorrow, h/o severe back arthritis, disc degeneration and scolosis, pain consistent with disc disorder/sciatic, neurologically intact, pt stable for dc Discussed results, diagnosis, treatment, strict return precautions and f/u with pt who is understadning, in agreement and stable for dc Scribe Attestation: Documented by Trisha De Souza, acting as a scribe for Jerrell Doll PA-C Provider Scribe Attestation: All medical record entries made by the Scribe were at my direction and per sonally dictated by me. I have reviewed the chart and agree that the record accurately reflects my personal performance of the history, physical exam, medical decision making, and the department course for this patient. I have also personally directed, reviewed, and agree with the discharge instructions and disposition. Disposition - Clinical Impression Clinical Impression: Low back pain, Sciatic leg pain - Patient ED Disposition Is Patient to be Admitted: No Counseled Patient/Family Regarding: Studies Performed, Diagnosis, Need For Followup, Rx Given - Disposition Referrals: Lester Santoyo MD [Family Provider] - your, doctor [Other] Disposition: Routine/Home Disposition Time: 15:32 Condition: IMPROVED Additional Instructions: Return to ED for new or worsening symptoms, fever >100.4, numbness or tingling, unable to walk, urinary or bowel incontinence, vomiting. Follow up with your primary doctor and back doctor in 2-3 days. Go to MRI as scheduled tomorrow. Take medications as prescribed. Rest, avoid heavy lifting or strenuous activity for one week. Use heating pads and hot showers to soothe muscles Prescriptions: Methocarbamol [Robaxin] 750 mg PO Q6 PRN #12 tab PRN Reason: Muscle Spasm Instructions: Sciatica, Low Back Pain in Adults Forms: [facility] (Emirati) Print Language: NIGERIEN - POA Present On Arrival: None
== END 2018-05-07 16:11 | disposition home or self-care (01) ==
LOC: H.ER 12:56
DX: M54.32 Sciatica, left side (principal)
CPT/HCPCS: 80053; 81003; 81025; 85025; 96374; 96375; 99284; J1100; J1885